=== PATIENT | female | born 1980 | race Caucasian/White ===

== ENCOUNTER 2016-10-15 15:12 | Emergency (ER) | payer OTHER ==
[~2016-10-15] VITALS: Ht 170.2 cm; Wt 127.0 kg
== END 2016-10-15 18:30 | disposition home or self-care (01) ==
LOC: CFTX 15:12 → CED 15:12 → CFTX 17:40
DX: L02.412 Cutaneous abscess of left axilla (principal); L03.112 Cellulitis of left axilla; I10 Essential (primary) hypertension
CPT/HCPCS: 10060; 99282